=== PATIENT | female | born 1975 | race Asian ===

== ENCOUNTER 2018-05-07 16:47 | Emergency (ER) | payer MEDICAID ==
[~2018-05-07] VITALS: Ht 157.5 cm; Wt 66.0 kg
[2018-05-07] MEDS ORDERED: FAMOTIDINE 20 MG TABLET ONE (18:10)
[2018-05-07] MEDS ORDERED: FAMOTIDINE 20 MG TABLET PO ONE (18:30)
== END 2018-05-07 18:30 | disposition home or self-care (01) ==
LOC: MERGE 18:24 → ED 18:24
DX: J98.01 Acute bronchospasm (principal); T78.1XXA Other adverse food reactions, not elsewhere classified, initial encounter; X58.XXXA Exposure to other specified factors, initial encounter; Y93.89 Activity, other specified; Y92.89 Other specified places as the place of occurrence of the external cause; Y99.8 Other external cause status
CPT/HCPCS: 99283; J7512